=== PATIENT | male | born 1990 | race Caucasian/White ===

== ENCOUNTER 2022-02-18 19:06 | Emergency (ER) | payer BC ==
[2022-02-18] MEDS ORDERED: Acetaminophen/HYDROcodone 325-5 MG Tab PO ONE (21:08)
[2022-02-18] MEDS ORDERED: Ketorolac 30 MG/ML SDV IM ONE (21:08)
== END 2022-02-18 21:21 | disposition home or self-care (01) ==
LOC: MW.ED 19:06
DX: M54.50 Low back pain, unspecified (principal); Z91.041 Radiographic dye allergy status; Z88.5 Allergy status to narcotic agent; Z79.899 Other long term (current) drug therapy; W00.0XXA Fall on same level due to ice and snow, initial encounter
CPT/HCPCS: 96372; 99283; A9270; J1885